=== PATIENT | female | born 1970 | race Caucasian/White ===

== ENCOUNTER 2018-06-17 10:01 | Inpatient (IN) | payer BC ==
[~2018-06-17] VITALS: Ht 160 cm; Wt 86.0 kg
[~2018-06-17 10:01] MED LIST: ADDERALL 10 MG10 MG PO; AMBIEN10 MG PO; ATORVASTATIN CA10 MG PO; BRINTELLIX PO; CREON DR 6,000 U1 EA PO; DICYCLOMINE HCL20 MG PO; HYDROCHLOROTHIA25 MG PO; LATUDA40 MG PO; LOSARTAN POTASS25 MG PO; METOCLOPRAMIDE10 MG PO; PANTOPRAZOLE SO40 MG PO; TRINTELLIX PO; VIBERZI PO; XANAX1 MG PO
--- OUTSIDE RECORDS SUMMARY | 2018-06-17 10:03 | XMS REPORT | Clinical Summary ---
Author Author [facility] Organization [facility] Address Unknown Phone Unavailable Care Team Providers Care Concession Attendant Name Role Phone Paola Gibbons MD PCP Allergies Not on File Medications Not on file Active Problems Not on file Social History Date Tobacco Use Types Packs/Day Years Used Never Assessed Sex Assigned at Date Recorded Not on file Industry Job Start Date Occupation Not on file Not on file Not on file Travel End Travel History Travel Start No recent travel history available. Last Filed Vital Signs Not on file Plan of Treatment Health Maintenance Due Date Last Done Comments CERVICAL CANCER SCREENING 1989 INFLUENZA VACCINE 02/07/2018 BREAST CANCER SCREENING 2018 COLON CANCER SCREENING 2018 SHINGRIX VACCINE (1 of 2) 2018 HEPATITIS B VACCINES Aged Out No longer eligible based on patient's age to complete this topic IPV VACCINES Aged Out No longer eligible based on patient's age to complete this topic MENINGOCOCCAL VACCINE Aged Out No longer eligible based on patient's age to complete this topic Results Not on fileafter 06/16/2017 Insurance Payer Benefit Subscriber ID Type Phone Address Plan / Group BCBS ANTHEM xxxxxxxxxxxx PPO BLUE CROSS BCBS ANTHEM xxxxxxxxxxxx PPO BLUE CROSS BCBS BCBS xxxxxxxxxxxx PPO CHOICE PPO/FEDERA L EMPL PPO ([place]) [place] [address] Advance Directives Patient has advance care planning documents on file. For more information, ranjeet santa contact: Guido Ruvalcaba [address] [place] [address]
--- OUTSIDE RECORDS SUMMARY | 2018-06-17 10:03 | XMS REPORT ---
Author Author [facility] Address Unknown Phone Unavailable Care Team Providers Care Rehabilitation Clerk Name Role Phone UNKNOWN, REFFERING PP Unavailable MANOJ MCMAHON Unavailable Unavailable Problems This patient has no known problems. Allergies, Adverse Reactions, Alerts This patient has no known allergies or adverse reactions. Medications This patient has no known medications. Results Test Description Test Time Test Comments Text Results Atomic Results Result Comments BHCG, Urine, Qualitative 2017-03-14 15:02:00 Preg Qual [Ur] (test code=HUHCG) Negative Negative
[2018-06-17] MEDS ORDERED: SODIUM CHLORIDE 0.9% 1000ML 1,000 ML IV STA (10:24)
[2018-06-17] MEDS ORDERED: FAMOTIDINE 20 MG/2 ML VIAL IV ONE (11:00)
[2018-06-17] MEDS ORDERED: MORPHINE SULFATE INJ 4 MG/ML INJ IV ONE (11:00)
[2018-06-17] MEDS ORDERED: ONDANSETRON HCL INJ 2 MG/ML VIAL IV ONE (11:00)
[2018-06-17] MEDS ORDERED: IOPAMIDOL 300MG/ML 100 ML INFUS..BTL IV ONE (11:15)
[2018-06-17] MEDS: POTASSIUM CHLORIDE 10MEQ/100ML 200 ML IV ONE ×2 (11:43→16:00)
[2018-06-17] MEDS: PROMETHAZINE 25MG/ NS 50ML (IV) IV PRN ×2 (11:47→13:56)
[2018-06-17] MEDS: LACTATED RINGER'S 1,000 ML IV SCH ×2 (11:55→13:56)
[2018-06-17] MEDS ORDERED: POTASSIUM CHLORIDE 20 MEQ TAB CR PO ONE (12:00)
[2018-06-17] MEDS ORDERED: ENALAPRILAT IV INJ 1.25 MG/ML VIAL IV PRN (12:00)
[2018-06-17] MEDS ORDERED: DIPHENHYDRAMINE HCL INJ 50 MG/ML VIAL IV PRN (12:00)
[2018-06-17] MEDS ORDERED: PIPER-TAZ 3.375 GM 50 ML IV ONE (12:00)
[2018-06-17] MEDS ORDERED: PROMETHAZINE 25MG/ NS 50ML (IV) IV PRN (12:00)
[2018-06-17] MEDS ORDERED: ONDANSETRON HCL 4 MG ORAL DISINTEGRATING TAB PO PRN (12:00)
--- OUTSIDE RECORDS SUMMARY | 2018-06-17 12:06 | XMS REPORT | Clinical Summary ---
Author Author [facility]ido [facility] Organization [facility] Address Unknown Phone Unavailable Care Team Providers Care Policy Checker Name Role Phone Paola Gibbons MD PCP [...] xxxxxxxxxxxx PPO CHOICE PPO/FEDERA L EMPL PPO ([place]) [place] [address] Advance Directives Patient has advance care planning documents on file. For more information, ranjeet santa contact: Guido Ruvalcaba [address] [place] [address]
[2018-06-17] MEDS ORDERED: PROMETHAZINE 25MG/ NS 50ML (IV) IV ONE (12:30)
--- NOTE | 2018-06-17 12:39 | Diagnostic Imaging Report ---
EXAMINATION: CT of the abdomen and pelvis with contrast. TECHNIQUE: Helical CT images of the abdomen and pelvis were performed from the lung bases to the lesser trochanters after the intravenous administration of 100 cc of Isovue 300 and the oral administration of none. Coronal and sagittal reformatted images were obtained. Dose modulation, iterative reconstruction, and/or weight based adjustment of the mA/kV was utilized to reduce the radiation dose to as low as reasonably achievable. COMPARISON: None. CLINICAL HISTORY:abdominal pain DISCUSSION: ABDOMEN/PELVIS: LOWER THORAX:Unremarkable. HEPATOBILIARY: No focal hepatic lesions. No intra-or extrahepatic biliary ductal dilation. The gallbladder is normal. SPLEEN: No splenomegaly. PANCREAS: Peripancreatic soft tissue stranding. No fluid collection. No parenchymal necrosis. ADRENALS: No adrenal nodules. KIDNEYS/URETERS: No hydronephrosis, stones, or solid mass lesions. PELVIC ORGANS/BLADDER: The bladder is normal. PERITONEUM/RETROPERITONEUM: No free air or fluid. LYMPH NODES: No intra-abdominal, retroperitoneal, pelvic or inguinal lymphadenopathy. VESSELS: The celiac trunk,superior and inferior mesenteric and bilateral renal arteries are patent The portal, superior mesenteric and splenic veins are patent. GI TRACT: No distention or wall thickening. BONES AND SOFT TISSUE: No bony destructive lesions. No soft tissue abnormalities. IMPRESSION: Acute pancreatitis without complication. Signed by: Dr. Ricky Soto M.D. on 06/17/2018 12:35 PM
[2018-06-17 13:47] VITALS: BP 141/90
[2018-06-17] MEDS: HYDROMORPHONE 2MG/ML 2 MG/ML ML IV PRN ×2 (13:57→18:04)
[2018-06-17 15:58] VITALS: BP 98/67
[2018-06-17] MEDS ORDERED: LOSARTAN POTASS50 MG PO (16:07)
[2018-06-17] MEDS ORDERED: LEXAPRO10 MG PO (16:07)
[2018-06-17] MEDS ORDERED: LATUDA80 MG PO (16:07)
[2018-06-17] MEDS ORDERED: ADDERALL 20 MG20 MG PO ×2 (16:12)
[2018-06-17] MEDS ORDERED: trazodone PO (16:16)
[2018-06-17 16:28] VITALS: BP 98/67
--- NOTE | 2018-06-17 16:49 | Diagnostic Imaging Report ---
EXAMINATION: Right upper quadrant ultrasound CLINICAL INDICATION: Right upper quadrant pain COMPARISON: None DISCUSSION: Transverse and longitudinal images of the right upper quadrant were obtained. The liver is prominent in size measuring 15.6centimeters in length in the right midclavicular line and shows normal echogenicity. No focal masses are seen in the liver. There is no intrahepatic biliary dilatation. The common bile duct is normal in caliber and measures 0.4 cm. The main portal vein is normal in caliber and measures 1.1 cm with normal hepatopetal flow. The gallbladder is normal in appearance without stones, wall thickening or pericholecystic fluid. The sonographic Ardon's sign is negative. Limited evaluation of the pancreas. The right kidney measures 11.2 centimeters in length. There is normal renal cortical echogenicity and no hydronephrosis, mass or shadowing calculi. The visualized portions of the great vessels are normal. No free fluid is seen. IMPRESSION: Normal gallbladder. No gallstones. Signed by: Dr. Ricky Soto M.D. on 06/17/2018 4:46 PM
[2018-06-17 20:00] VITALS: BP 101/63
[2018-06-17] MEDS ORDERED: POTASSIUM CHLORIDE 20MEQ/100ML 200 ML IV ONE (20:30)
[2018-06-17] MEDS ORDERED: POTASSIUM CHLORIDE 20 MEQ TAB CR PO STA (20:35)
[2018-06-17] MEDS: SOD CHL 0.45%/POT CHL 20MEQ 1,000 ML IV SCH (21:04)
[2018-06-17] MEDS: ONDANSETRON HCL INJ 2 MG/ML VIAL IV PRN (21:05)
[2018-06-17] MEDS: MORPHINE SULFATE 2 MG/ML SYR IV PRN (21:05)
[2018-06-17] MEDS: HYDROCODONE/APAP 5MG-325MG TAB PO PRN (23:56)
[2018-06-18] VITALS (7 sets, daily range): BP systolic 121–133; BP diastolic 74–90
[2018-06-18] MEDS: MORPHINE SULFATE 2 MG/ML SYR IV PRN ×2 (02:58→07:41)
[2018-06-18] MEDS: ONDANSETRON HCL INJ 2 MG/ML VIAL IV PRN (02:58)
[2018-06-18] MEDS: SOD CHL 0.45%/POT CHL 20MEQ 1,000 ML IV SCH ×3 (04:28→22:00)
[2018-06-18] MEDS: HYDROCODONE/APAP 5MG-325MG TAB PO PRN (04:29)
[2018-06-18 05:14] LABS: BASOPHILS % 0.2 % (0.0-1.0); EOSINOPHILS % 0.4 % (0.0-6.0); HEMOGLOBIN 11.8 g/dL (12.0-16.0); LYMPHOCYTES # (AUTO) 1.7 (1.0-3.2); LYMPHOCYTES % 17.1 % (18.0-39.1); MEAN CORPUSCULAR HEMOGLOBIN 35.8 pg (28-32); MEAN CORPUSCULAR HGB CONC 36.9 g/dL (31-35); MONOCYTES # (AUTO) 0.6 (0.2-0.8); MONOCYTES % 6.4 % (4.4-11.3); NEUTROPHILS # (AUTO) 7.3 (2.1-6.9); NEUTROPHILS % 75.5 % (38.7-80.0); PLATELET COUNT 117 x10e3/uL (140-360); RED CELL DISTRIBUTION WIDTH 16.1 % (11.7-14.4)
[2018-06-18 05:43] LABS: ALANINE AMINOTRANSFERASE 17 IU/L (0-55); ALBUMIN 2.8 g/dL (3.5-5.0); ALKALINE PHOSPHATASE 45 IU/L (40-150); AMYLASE 1499 U/L (25-125); ANION GAP 14.3 mmol/L (8-16); BLOOD UREA NITROGEN 6 mg/dL (7-26); BUN/CREATININE RATIO 9 (6-25); CALCIUM 7.6 mg/dL (8.4-10.2); CARBON DIOXIDE 25 mmol/L (22-29); CHLORIDE 97 mmol/L (98-107); CREATININE, SERUM 0.65 mg/dL (0.57-1.11); EST GLOMERULAR FILTRATION RATE > 60 ML/MIN (60-); GLUCOSE 77 mg/dL (74-118); LIPASE 215 U/L (8-78); POTASSIUM 3.3 mmol/L (3.5-5.1); SODIUM 133 mmol/L (136-145)
--- NOTE | 2018-06-18 09:32 | Consultation ---
DATE OF CONSULTATION: June 18, 2018 This is a 48 year old who apparently drinks 3-4 drinks a day, presented to the hospital because of abdominal pain, which is mainly in the left abdominal area for several days. Her workup revealed that she has some anemia with a hemoglobin of 11.8, as well as acute pancreatitis. The ultrasound shows no evidence of gallstones. She did have a CT scan which did confirm acute pancreatitis. Her other medical problems are really unremarkable, except she drinks daily, about 3-4 drinks a day. She also has a history of hypertension. MEDICATIONS: At home, supposedly on Ambien, Xanax, losartan, hydrochlorothiazide, 10% calcium, , metoclopramide, dicyclomine, pantoprazole. PAST MEDICAL HISTORY: As mentioned above. FAMILY HISTORY: Noncontributory. REVIEW OF SYSTEMS: Denies any chest pain at this point. Denies any shortness of breath. Denies any nausea or vomiting. Denies any dysuria or hematuria, or any kind of syncopal episode. PHYSICAL EXAMINATION GENERAL: The patient is awake, alert and appears to be stable. No acute distress at this point. VITAL SIGNS: Afebrile currently. Stable vital signs. HEENT: Atraumatic and normocephalic. Sclerae is anicteric. NECK: Supple. HEART: Sounds regular. ABDOMEN: Soft. There is tenderness in the epigastric area. There is no rebound or mass. EXTREMITIES: No clubbing. LAB VALUES: Today, potassium is 3.3, amylase is 1499, lipase of 215. WBC on admission of 9.6, hemoglobin 11.8. IMPRESSION 1. Acute pancreatitis related to alcohol abuse. 2. Hypertension. 3. Anemia. RECOMMENDATIONS: Continue current care at this point. N.p.o. Pain control. Follow labs clinically. I strongly suggest to stop alcohol intake. Job#: [id number] RI cc:MD HEATHER NGUYEN MD
[2018-06-18] MEDS ORDERED: MORPHINE SULFATE 2 MG/ML SYR IV STA (09:42)
[2018-06-18] MEDS: MORPHINE SULFATE INJ 4 MG/ML INJ IV PRN ×4 (10:17→22:16)
--- NOTE | 2018-06-18 11:21 | History and Physical ---
CHIEF COMPLAINT: Abdominal pain. HPI: This is a 48-year-old female with known history of chronic alcohol abuse, very noncompliant with her primary care visits, who comes in with complaints of epigastric abdominal pain ongoing for the last 3 days. Patient reports that initially she described having right upper quadrant abdominal pain that continued to get worse since Monday, then radiated to the epigastric area. She reports she drinks alcohol daily, especially hard liquor with whiskey. She reports drinking every day. Does not eat a whole lot. When the pain began, she noticed that the pain has been excruciating with decreased oral intake with associated nausea and vomiting. Patient was seen and evaluated at bedside on the medical floor. Currently complaining of pain. She has elevated lipase as well as amylase. Imaging is consistent with acute pancreatitis. She denies any history of hyperlipidemia or diabetes. REVIEW OF SYSTEMS: Pertinent positives: Abdominal pain, nausea, vomiting, decreased oral intake. Pertinent negatives: Denies any chest pain, palpitations, dysuria, hematuria, frequency, urgency, lightheadedness, dizziness, headache, shortness of breath, cough, congestion, fever or any other complaints. The rest of the 14-point review of systems have been reviewed with the patient and are negative. ALLERGIES: NO KNOWN DRUG ALLERGIES. HOME MEDICATIONS 1. Lipitor 10 mg daily. 2. Lexapro 20 mg daily. 3. Hydrochlorothiazide 12.5 mg daily. 4. Protonix 40 mg daily. 5. Ambien 12.5 mg at bedtime. 6. She also takes Adderall. 7. Losartan 50 mg daily. PAST MEDICAL HISTORY: Has depression, hyperlipidemia, acid reflux, hypertension, multiple psychiatric disorders, chronic alcohol abuse. SURGICAL HISTORY: None. FAMILY HISTORY: Hypertension, diabetes. SOCIAL HISTORY: No drugs. She drinks daily hard liquor. Does not smoke. She is . VITAL SIGNS: Temperature is 98.9, pulse 101, respiratory rate is 20, blood pressure 132/86, pulse ox 95% on room air. LAB FINDINGS: White count 9.6, hemoglobin 11.8, hematocrit 32, platelets of 117. Chemistries: Sodium 132, potassium 3.3, chloride 97, bicarb 25, anion gap 6, BUN 6, creatinine 0.65, calcium 11.6. LFTs: Total bilirubin 0.9, AST 35, ALT 17, alk phos 45, total protein 5.7, albumin 2.8. Amylase is 1499 and lipase 215. Alcohol level is negative. MICROBIOLOGY: None. IMAGING STUDIES: Gallbladder ultrasound: Normal gallbladder, no gallstones. CT abdomen and pelvis: Acute pancreatitis without complications. PHYSICAL EXAMINATION GENERAL: Not in acute distress, alert and oriented times 3, cooperative on exam. She does have severe pain during my evaluation. HEENT: Head is normocephalic and atraumatic. Eyes: Pupils are equal and reactive to light bilaterally. The extraocular movements are intact bilaterally. NECK: Supple with good range of motion. THROAT: No evidence of any erythema or exudates in the posterior pharynx, has poor dentition. PULMONARY: Clear to auscultation bilaterally. No wheezing, no rales, no rhonchi, no crackles appreciated. CARDIOVASCULAR: Positive S1 and S2. No murmurs, rubs, or gallops appreciated. ABDOMEN: Tender to palpation in the epigastric region. Bowel sounds were present. MUSCULOSKELETAL: Strength is 5/5 throughout. No evidence of any musculoskeletal deficits on examination. No weakness appreciated. NEUROLOGIC: Cranial nerves II through XII are grossly intact. No evidence of any neurologic deficit on exam. SKIN: Intact. Warm to touch. Good cap refill. PSYCHIATRIC: Normal affect and mood. EXTREMITIES: No edema. Good range of motion throughout. IMPRESSION 1. Acute alcoholic pancreatitis. 2. Hypertension. 3. Anemia. 4. Hypokalemia. 5. Abdominal pain secondary to acute pancreatitis. 6. Hypertension. 7. Depression. PLAN: At this time, GI has been consulted and recommended just alcohol cessation and monitor her very closely. Continue with n.p.o., IV fluids, pain control. Will repeat labs in the morning. Resume all her home medications. Continue same home medications. Put her on Lovenox for DVT prophylaxis. Encourage ambulation. Continue n.p.o. for now. Once her pain is much subsided, will start on a clear liquid diet tomorrow. Increase pain medication to 4 mg of morphine q.4 h. Otherwise, will continue with same plan of care and monitor closely. Follow up with GI recommendations. Job#: [id number]
[2018-06-18] MEDS ORDERED: MORPHINE SULFATE 2 MG/ML SYR IV PRN (12:30)
[2018-06-18] MEDS: LURASIDONE HCL 80 MG PO SCH (20:20)
[2018-06-18] MEDS: ATORVASTATIN 10 MG TAB PO SCH (20:21)
[2018-06-18] MEDS ORDERED: LURASIDONE HCL 80 MG PO SCH (21:00)
[2018-06-19 00:54] VITALS: BP 125/76
[2018-06-19] MEDS: MORPHINE SULFATE INJ 4 MG/ML INJ IV PRN ×5 (02:20→20:30)
[2018-06-19 05:02] LABS: BASOPHILS % 0.2 % (0.0-1.0); EOSINOPHILS # (AUTO) 0.1 (0.0-0.4); EOSINOPHILS % 0.9 % (0.0-6.0); HEMATOCRIT 28.9 % (34.2-44.1); HEMOGLOBIN 10.1 g/dL (12.0-16.0); LYMPHOCYTES # (AUTO) 1.5 (1.0-3.2); LYMPHOCYTES % 15.5 % (18.0-39.1); MEAN CORPUSCULAR HEMOGLOBIN 34.6 pg (28-32); MEAN CORPUSCULAR HGB CONC 34.9 g/dL (31-35); MONOCYTES # (AUTO) 0.6 (0.2-0.8); MONOCYTES % 5.9 % (4.4-11.3); NEUTROPHILS # (AUTO) 7.2 (2.1-6.9); PLATELET COUNT 104 x10e3/uL (140-360); RED BLOOD COUNT 2.92 x10e6/uL (3.6-5.1)
[2018-06-19 05:25] LABS: ALANINE AMINOTRANSFERASE 13 IU/L (0-55); ALBUMIN 2.3 g/dL (3.5-5.0); ALBUMIN/GLOBULIN RATIO 0.8 (0.8-2.0); ALKALINE PHOSPHATASE 52 IU/L (40-150); AMYLASE 1181 U/L (25-125); ANION GAP 15.3 mmol/L (8-16); BLOOD UREA NITROGEN 5 mg/dL (7-26); BUN/CREATININE RATIO 9 (6-25); CALCIUM 7.4 mg/dL (8.4-10.2); CARBON DIOXIDE 22 mmol/L (22-29); CHLORIDE 101 mmol/L (98-107); CREATININE, SERUM 0.58 mg/dL (0.57-1.11); EST GLOMERULAR FILTRATION RATE > 60 ML/MIN (60-); GLUCOSE 60 mg/dL (74-118); LIPASE 86 U/L (8-78); POTASSIUM 3.3 mmol/L (3.5-5.1); SODIUM 135 mmol/L (136-145)
[2018-06-19 06:40] VITALS: BP 127/77
[2018-06-19] MEDS: SOD CHL 0.45%/POT CHL 20MEQ 1,000 ML IV SCH ×3 (07:07→15:12)
[2018-06-19 08:00] VITALS: BP 131/86
[2018-06-19] MEDS: LOSARTAN POTASSIUM 25 MG TAB PO SCH (08:19)
[2018-06-19] MEDS: PANTOPRAZOLE SOD 40 MG TABEC PO SCH (08:19)
[2018-06-19] MEDS: ESCITALOPRAM OXALATE 10 MG TAB PO SCH (08:19)
[2018-06-19] MEDS ORDERED: NON-FORMULARY MEDICATION (Losartan Potassium 50 MG) PO SCH (09:00)
[2018-06-19 12:00] VITALS: BP 131/80
[2018-06-19] MEDS ORDERED: POTASSIUM CHLORIDE 20 MEQ TAB CR PO NR (15:38)
[2018-06-19 16:00] VITALS: BP 160/82
[2018-06-19] MEDS ORDERED: ZOLPIDEM TARTRATE 5 MG TAB PO PRN (16:00)
--- NOTE | 2018-06-19 16:45 | Progress Note ---
DATE: June 19, 2018 PROGRESS NOTE SUBJECTIVE: Patient is doing much better today with no other complaints. Her abdominal pain is much improved. We are going to start on clear-liquid diet. OBJECTIVE VITAL SIGNS: Temperature is 97.4, pulse 87, respiratory rate is 19, blood pressure 131/80, pulse ox 97% on room air. LAB FINDINGS: Show white count is 9.3, hemoglobin 10.1, hematocrit is 28.9, platelets of 104. CHEMISTRY: Sodium 135, potassium 3.3, chloride 101, bicarb 22, anion gap of 15, BUN is 5, creatinine is 0.58, glucose is 60, calcium is 7.4. Total bilirubin is 0.7. LFTs were normal. Albumin is 2.3. Lipase is 86. Her amylase is 1181. MICROBIOLOGY: None. IMAGING STUDIES: None. PHYSICAL EXAMINATION GENERAL: Not in acute distress. Alert, oriented x3, cooperative on examination. HEENT: Head: Normocephalic, atraumatic. Eyes: Pupils equally round and reactive to light bilaterally. Extraocular movements intact bilaterally. Neck was supple with good range of motion. Throat: No evidence of any erythema or exudates in the posterior pharynx. Has poor dentition. PULMONARY: Clear to auscultation bilaterally. No wheezing, no rales, no rhonchi, no crackles appreciated. CARDIOVASCULAR: Positive S1/S2. No murmurs, rubs or gallops appreciated. ABDOMEN: Soft, nondistended, nontender to palpation. Bowel sounds present. MUSCULOSKELETAL: Strength is 5/5 throughout. No evidence of any musculoskeletal deficit on examination. No weakness appreciated. NEUROLOGICAL: Cranial nerves 2-12 are grossly intact. No evidence of any neurological deficit on exam. SKIN: Intact. Warm to touch. Good capillary refill. PSYCHIATRIC: Normal affect and mood. EXTREMITIES: No edema. Good range of motion throughout. IMPRESSION 1. Acute alcoholic pancreatitis. 2. Hypertension. 3. Anemia. 4. Hypokalemia. 5. Abdominal pain secondary to acute pancreatitis. 6. Depression. PLAN: At this time her abdominal pain is improving. We are going to start her on a clear-liquid diet, advance as tolerated. Continue with IV fluids, pain control, and monitor very closely. I will continue with the morphine 4 mg q.4 h. We discussed with the patient that if she is improving she will likely be discharged tomorrow if she tolerates diet. Job#: [id number] EV
[2018-06-19 20:00] VITALS: BP 132/75
[2018-06-19] MEDS: LURASIDONE HCL 80 MG PO SCH (21:00)
[2018-06-19] MEDS: ATORVASTATIN 10 MG TAB PO SCH (21:31)
[2018-06-20] VITALS: BP 127/78
[2018-06-20] MEDS: MORPHINE SULFATE INJ 4 MG/ML INJ IV PRN ×2 (00:38→07:49)
[2018-06-20 07:45] VITALS: BP 165/93
[2018-06-20] MEDS: ESCITALOPRAM OXALATE 10 MG TAB PO SCH (07:48)
[2018-06-20] MEDS: PANTOPRAZOLE SOD 40 MG TABEC PO SCH (07:48)
[2018-06-20] MEDS: LOSARTAN POTASSIUM 25 MG TAB PO SCH (07:50)
[2018-06-20] MEDS: SOD CHL 0.45%/POT CHL 20MEQ 1,000 ML IV SCH (08:36)
[2018-06-20 08:37] VITALS: BP 165/93
[2018-06-20] MEDS ORDERED: POTASSIUM CHLORIDE 20 MEQ TAB CR PO STA (09:09)
[2018-06-20 11:58] VITALS: BP 124/68
[2018-06-20 16:00] VITALS: BP 106/64
--- NOTE | 2018-06-20 18:16 | Discharge Summary ---
FINAL DISCHARGE DIAGNOSES 1. Acute pancreatitis due to alcohol abuse. 1. Hypertension. 2. Anemia. 3. Hypokalemia. 4. Abdominal pain secondary to acute pancreatitis. 5. Depression. 6. Decreased oral intake. CONSULTANTS: GI. VITAL SIGNS: Temperature is 97.5, pulse 90, respiratory rate is 18, blood pressure 106/64, pulse ox 96% on room air. LAB FINDINGS: Show white count is 9.3, hemoglobin is 10.1, hematocrit is 28.9, platelets of 104. CHEMISTRY: Sodium 135, potassium 3.3, chloride 101, bicarb 22, anion gap of 16, BUN is 5, creatinine is 0.58, glucose is 60, calcium is 7.4. Albumin is 2.3. Lipase was 86. Amylase was elevated 1181. LFTs were normal. Alcohol level was undetectable. MICROBIOLOGY: None. IMAGING STUDIES: Gallbladder ultrasound shows a normal gallbladder with no gallstones. CT abdomen and pelvis: Acute pancreatitis without complications. HOSPITAL COURSE: A 48-year-old female, known alcoholic, comes into the ED with complaints of severe abdominal pain epigastrically that radiates all the way to her back. She reports that her last alcoholic drink was on Monday of last week. She reported having significant amount of hard liquor at home in which her liquor of choice is whiskey. While here her lipase level and amylase level were elevated. Patient was n.p.o. initially on IV fluids and pain control. GI was consulted. Patient was then initiated from clear-liquid diet to a solid diet prior to discharge in which she tolerated well. Her lipase level did improve throughout the hospital course. On discharge patient had no other complaints and ready for discharge home. On the day of discharge, vital signs stable, labs reviewed and stable. Patient seen and evaluated and examined thoroughly on the day of discharge with no other complaints. Patient verbalized understanding and agreed with plan of care, to follow up accordingly as an outpatient with the primary care physician in 1 week's time. Follow up with GI in 2 weeks' time. MEDICATIONS: See med reconciliation form. DISPOSITION: Home. CONDITION: Stable. DIET: Heart-healthy. In the event of any worsening symptoms, patient advised to come back to the ED for further evaluation. Discharge summary took greater than 35 minutes. LOUISE ROY MD Job#: [id number] EV
== END 2018-06-20 17:49 | disposition home or self-care (01) | DRG 440 ==
LOC: FSED 10:01 → ERHOLD 11:56 → MED/SURG2 13:42
PROVIDERS: ADMIT Internal Medicine; ATTEND Internal Medicine
DX: K85.20 Alcohol induced acute pancreatitis without necrosis or infection (principal); F10.20 Alcohol dependence, uncomplicated; I10 Essential (primary) hypertension; D64.9 Anemia, unspecified; K21.9 Gastro-esophageal reflux disease without esophagitis; E86.0 Dehydration; E87.6 Hypokalemia; F32.9 Major depressive disorder, single episode, unspecified
CPT/HCPCS: 36415; 74177; 76705; 80053; 80076; 80320; 81003; 82150; 83690; 85025; 96360; 96361; 99284; J1200; J2270; J2405; J2543; J2550; J3480; J7030; J7120; Q9967

== ENCOUNTER 2018-11-14 03:25 | Emergency (ER) | payer BC ==
[~2018-11-14] VITALS: Ht 160 cm; Wt 81.0 kg
[~2018-11-14 03:25] MED LIST changes: +ADDERALL 20 MG20 MG PO; +LATUDA80 MG PO; +LEXAPRO10 MG PO; +LOSARTAN POTASS50 MG PO; +trazodone PO
--- OUTSIDE RECORDS SUMMARY | 2018-11-14 03:30 | XMS REPORT | Clinical Summary ---
Author Author [facility] Organization [facility] Address Unknown Phone Unavailable Care Team Providers Care Animal Care Worker Name Role Phone Paola Gibbons MD PCP [...] Last Done Comments CERVICAL CANCER SCREENING 1989 BREAST CANCER SCREENING 2018 COLON CANCER SCREENING 2018 SHINGLES VACCINES (#1) 2018 INFLUENZA VACCINE 02/07/2019 Results Not on fileafter 11/13/2017 Insurance Payer Benefit Subscriber ID Type Phone Address Plan / Group BCBS ANTHEM xxxxxxxxxxxx PPO BLUE CROSS BCBS ANTHEM xxxxxxxxxxxx PPO BLUE CROSS BCBS BCBS xxxxxxxxxxxx PPO CHOICE PPO/FEDERA L EMPL PPO ([place]) [place] [address] Advance Directives Patient has advance care planning documents on file. For more information, ranjeet santa contact: Guido Ruvalcaba [address] [place] [address]
[2018-11-14] MEDS ORDERED: XANAX0.5 MG (03:53)
[2018-11-14] MEDS ORDERED: ACETAMINOPHEN 325 MG TAB PO ONE (04:00)
[2018-11-14] MEDS ORDERED: KETOROLAC TROMETHAMINE 60 MG/2 ML VIAL IM ONE (04:00)
--- NOTE | 2018-11-14 04:05 | NUR ---
Pt also c/o left rib pain under her left breast
--- NOTE | 2018-11-14 05:10 | Diagnostic Imaging Report ---
Exam: Thoracic spine 2 views History: Back pain Comparison: None. Findings: No fracture or malalignment. Multilevel degenerative disc disease throughout the thoracic spine with physiologic wedging of lower thoracic vertebrae. No abnormal soft tissue calcification or soft tissue defect. Impression: No acute osseous abnormality Multilevel thoracic spondylosis Signed by: Dr. Ricky Soto M.D. on 11/14/2018 5:06 AM
--- NOTE | 2018-11-14 05:13 | Diagnostic Imaging Report ---
Exam: Rib series History: Pain Comparison: None. Findings: No fracture or malalignment. No abnormal soft tissue calcification or soft tissue defect. Impression: No displaced rib fracture Signed by: Dr. Ricky Soto M.D. on 11/14/2018 5:09 AM
[2018-11-14] MEDS ORDERED: HYDROCODONE/APAP 5MG-325MG TAB PO ONE (05:15)
[2018-11-14 05:46] VITALS: BP 107/74
--- NOTE | 2018-11-15 09:19 | Diagnostic Imaging Report ---
Exam: Head CT without contrast History: Trauma, fall Comparison studies: None Technique: Axial images were obtained from the skull base to the vertex. Coronal and sagittal images reconstructed from the axial data. Dose modulation, iterative reconstruction, and/or weight based adjustment of the mA/kV was utilized to reduce the radiation dose to as low as reasonably achievable. Radiation dose: Total DLP: 969 mGy*cm. Estimated effective dose: DLP x 0.015 Intravenous contrast: None Findings: Scalp: Left parietal-occipital scalp hematoma and laceration with subcutaneous emphysema. No retained hyperdense foreign body. Bones: No fractures, blastic or lytic lesions. Brain sulci: Appropriate for age. Ventricles: Normal in size and configuration. No hydrocephalus. Extra-axial spaces: No masses, no fluid collection. Parenchyma: No abnormal densities. No masses, hemorrhage, acute or chronic vascular insults. Sellar/suprasellar region: No abnormalities. Craniocervical junction: Patent foramen magnum. No Chiari one malformation. IMPRESSION: 1. Left parietal-occipital scalp hematoma and laceration. No retained hyperdense foreign body or fracture. 2. No intracranial abnormalities. Signed by: Dr. Hoang Nunez M.D. on 11/14/2018 5:05 AM
== END 2018-11-14 05:37 | disposition home or self-care (01) ==
LOC: FSED 03:25
DX: S00.83XA Contusion of other part of head, initial encounter (principal); S20.222A Contusion of left back wall of thorax, initial encounter; W01.0XXA Fall on same level from slipping, tripping and stumbling without subsequent striking against object, initial encounter; Y92.000 Kitchen of unspecified non-institutional (private) residence as the place of occurrence of the external cause; I10 Essential (primary) hypertension; K92.9 Disease of digestive system, unspecified
CPT/HCPCS: 70450; 71101; 72070; 81025; 96372; 99284

== ENCOUNTER 2018-11-24 15:33 | Emergency (ER) | payer BC ==
[~2018-11-24] VITALS: Ht 160 cm; Wt 80.7 kg
[~2018-11-24 15:33] MED LIST changes: +XANAX0.5 MG
--- OUTSIDE RECORDS SUMMARY | 2018-11-24 15:36 | XMS REPORT | Clinical Summary ---
Author Author Guido [facility] Organization [facility] Address Unknown Phone Unavailable Care Team Providers Care Electronic Intelligence Officer Name Role Phone Paola Gibbons MD PCP [...] INFLUENZA VACCINE 02/07/2019 Results Not on fileafter 11/23/2017 Insurance Payer Benefit Subscriber ID Type Phone Address Plan / Group BCBS ANTHEM xxxxxxxxxxxx PPO BLUE CROSS BCBS ANTHEM xxxxxxxxxxxx PPO BLUE CROSS BCBS BCBS xxxxxxxxxxxx PPO CHOICE PPO/FEDERA L EMPL PPO ([place]) [place] [address] Advance Directives Patient has advance care planning documents on file. For more information, ranjeet santa contact: Guido Ruvalcaba [address] [place] [address]
[2018-11-24] MEDS ORDERED: IOPAMIDOL 370 MG/ML 200 ML INFUS..BTL INJ ONE (15:57)
[2018-11-24] MEDS ORDERED: SODIUM CHLORIDE 0.9% 50ML 50 ML ONE (15:58)
[2018-11-24] MEDS ORDERED: SODIUM CHLORIDE 0.9% 1000ML 1,000 ML IV SCH (16:00)
[2018-11-24] MEDS ORDERED: FENTANYL CITRATE/PF 100MCG/2 ML INJ IV ONE (16:00)
[2018-11-24] MEDS ORDERED: ONDANSETRON HCL INJ 2MG/ML 2ML 2 MG/ML VIAL ONE (16:04)
[2018-11-24] MEDS ORDERED: SODIUM CHLORIDE 0.9% 1000ML 1,000 ML ONE (16:05)
[2018-11-24] MEDS ORDERED: ONDANSETRON HCL INJ 2MG/ML 2ML 2 MG/ML VIAL IV STA (16:08)
[2018-11-24] MEDS ORDERED: ONDANSETRON HCL INJ 2MG/ML 2ML 2 MG/ML VIAL IV NR (16:30)
--- NOTE | 2018-11-24 17:16 | Diagnostic Imaging Report ---
CT BRAIN [facility] HISTORY: Headache, fall COMPARISON: Head CT 11/14/2018 TECHNIQUE: Noncontrast axial scans were obtained from skull base to the vertex. Coronal and sagittal reconstructions obtained from the axial data. One or more of the following dose reduction techniques were used: Automated exposure control, adjustment of the mA and/or kV according to patient size, and/or utilization of iterative reconstruction technique. DISCUSSION: Scalp/Skull: Small left parietal scalp hematoma has decreased in size. No calvarial fracture. Brain sulci: Appropriate for patient's age. Ventricles: Normal in size and configuration. No hydrocephalus. Extra-axial spaces: No masses or fluid collections. Parenchyma: Mild carotid siphon calcifications. No mass, hemorrhage, or large vascular territory acute infarct. Dural sinuses: No abnormal densities. Sellar/Suprasellar region: Intact. Skull base: Intact. Incidental findings: Mild nasal cavity mucosal thickening is partially visualized. IMPRESSION: No acute intracranial abnormalities. Signed by: Dr. Matthew Hernandez M.D. on 11/24/2018 5:13 PM
--- NOTE | 2018-11-24 17:25 | Diagnostic Imaging Report ---
EXAMINATION: CT scan of the chest with contrast. TECHNIQUE: Helical CT images of the chest were performed from the lung apices to the level of the adrenal glands after the intravenous administration of 100 cc of Omnipaque 300. Coronal and sagittal reformatted images were obtained.Dose modulation, iterative reconstruction, and/or weight based adjustment of the mA/kV was utilized to reduce the radiation dose to as low as reasonably achievable. COMPARISON: None. CLINICAL HISTORY:Shortness of breath, fall DISCUSSION: LINES/TUBES: None. LUNGS AND AIRWAYS: Minimal lung base atelectasis No pulmonary embolism. PLEURA: Small left pleural effusion. HEART AND MEDIASTINUM: The thyroid gland is normal. Heart size is enlarged. Hiatal hernia. LYMPH NODES: There is no mediastinal, hilar or axillary lymphadenopathy. ABDOMEN: Limited contrast-enhanced views of the upper abdomen show no abnormality within the visualized liver, spleen, pancreas, or kidneys. The adrenal glands are normal. BONES AND SOFT TISSUES: Left seventh through ninth nondisplaced rib fractures. IMPRESSION: No pulmonary embolism Left seventh through ninth nondisplaced rib fractures. Signed by: Dr. Ricky Soto M.D. on 11/24/2018 5:22 PM
[2018-11-24] MEDS ORDERED: NAPROSYN500 MG PO (17:27)
[2018-11-24] MEDS ORDERED: FIORINAL 50-321 EACH PO (17:27)
[2018-11-24] MEDS ORDERED: KETOROLAC TROMETHAMINE 30 MG/ML VIAL IV STA (17:30)
[2018-11-24] MEDS ORDERED: KETOROLAC TROMETHAMINE 30 MG/ML VIAL ONE (17:32)
[2018-11-24] MEDS ORDERED: ULTRAM50 MG PO (17:41)
== END 2018-11-24 17:57 | disposition home or self-care (01) ==
LOC: FSED 15:33
DX: S06.0X9A Concussion with loss of consciousness of unspecified duration, initial encounter (principal); S22.42XA Multiple fractures of ribs, left side, initial encounter for closed fracture; R55 Syncope and collapse; W18.30XA Fall on same level, unspecified, initial encounter; Y92.008 Other place in unspecified non-institutional (private) residence as the place of occurrence of the external cause; F17.210 Nicotine dependence, cigarettes, uncomplicated
CPT/HCPCS: 70450; 71275; 93005; 99284; J1885; J2405; J7030; Q9967

== ENCOUNTER → 2019-02-05 | Day surgery (SDC) | payer BC ==
[~2019-02-05] MED LIST changes: +ACETAMINOPHEN 1000 MG/100 ML IV ONE; +BUPIVACAINE HCL 0.5% INJ 30 ML VIAL INJ ONE; +CEFAZOLIN SOD 1 GM/NS 50ML 50 ML IV ONE; +DEXAMETHASONE SOD PHOS INJ 4 MG/ML VIAL ONE; +FENTANYL CITRATE/PF 100MCG/2 ML INJ ONE; +FIORINAL 50-321 EACH PO; +HYDROMORPHONE 1MG/1ML INJ ONE; +HYDROMORPHONE 2MG/ML 2 MG/ML ML ONE; +LIDOCAINE HCL 2% LOCAL INJ 5 ML SDV VIAL INJ ONE; +MIDAZOLAM HCL 2 MG/2 ML VIAL ONE; +NAPROSYN500 MG PO; +ONDANSETRON HCL INJ 2MG/ML 2ML 2 MG/ML VIAL ONE; +PROPOFOL IV EMULSION 10 MG/ML 20 ML VIAL ONE; +SEVOFLURANE INHAL SOLN 250 ML PEN BTL ONE; +ULTRAM50 MG PO
--- OUTSIDE RECORDS SUMMARY | 2019-02-05 05:15 | XMS REPORT | Clinical Summary ---
Author Author [facility] Organization [facility] Address Unknown Phone Unavailable Care Team Providers Care Center Director Lead Teacher Name Role Phone Paola Gibbons MD PCP [...] Health Maintenance Due Date Last Done Comments BREAST CANCER SCREENING 2018 COLONOSCOPY SCREENING 2018 SHINGLES VACCINES (#1) 2018 INFLUENZA VACCINE 02/07/2019 Results Not on fileafter 02/04/2018 Insurance Type Payer Benefit Subscriber ID Effective Phone Address Plan / Dates Group PPO BCBS ANTHEM xxxxxxxxxxxx 2015-P BLUE CROSS resent PPO BCBS ANTHEM xxxxxxxxxxxx 2016-P BLUE CROSS resent PPO BCBS BCBS xxxxxxxxxxxx 2016-P CHOICE resent PPO/FEDERA L EMPL PPO ([place]) [place] [address] Advance Directives Patient has advance care planning documents on file. For more information, ranjeet e contact: Guido Ruvalcaba [address] [place] [phone]
[2019-02-05 09:30] VITALS: BP 100/68
--- NOTE | 2019-02-05 11:30 | Operative Report ---
DATE OF PROCEDURE: 02/05/2019 SURGEON: Delvin Floyd DPM PREOPERATIVE DIAGNOSES: 1. Left hammer toe, 2nd, 3rd, 4th, and 5th. 2. Left metatarsal condylectomy, 2nd, 3rd, 4th, and 5th. POSTOPERATIVE DIAGNOSES: 1. Left hammer toe, 2nd, 3rd, 4th, and 5th. 2. Left metatarsal condylectomy, 2nd, 3rd, 4th, and 5th. PLANNED PROCEDURES: 1. Left 2nd digit arthroplasty. 2. Left 3rd digit arthroplasty. 3. Left 4th digit arthroplasty. 4. Left 5th digit arthroplasty. 5. Left 2nd metatarsal plantar condylectomy. 6. Left 3rd metatarsal plantar condylectomy. 7. Left 4th metatarsal plantar condylectomy. 8. Left 5th metatarsal plantar condylectomy. SURGEON: David Panda DPM ([place]) COAT CUTTER: Delvin Floyd DPM ANESTHESIA: General with a postoperative block consisting of 20 mL of 0.5% Marcaine plain, mixed 1 mL of dexamethasone phosphate. HEMOSTASIS: Pneumatic thigh tourniquet set at 350 mmHg for a total time of approximately 50 minutes. MATERIALS: Four 0.045 K-wires, 3-0 Vicryl, 4-0 Prolene. PATHOLOGY: None. ESTIMATED BLOOD LOSS: Less than 10 mL. PROCEDURE NOTE: The patient was seen in the preoperative waiting room. The correct procedure and site were identified. The patient was brought to the operating room, placed on the operating table in a supine position. General anesthesia was initiated. At this time, a well-padded pneumatic tourniquet was placed about the patient's left thigh. The left foot ankle leg was then scrubbed, prepped, and draped in the usual aseptic manner. The left foot, ankle, and leg was exsanguinated with an Esmarch bandage and the pneumatic thigh tourniquet was inflated to 350 mmHg for a total time of approximately 50 minutes. Attention was directed to the dorsal aspect of the left 2nd proximal interphalangeal joint, where a 2 cm linear incision made directly over the joint. Incision was carried through subcutaneous tissue them from deep or underlying structures. All vital neurovascular structures were identified, retracted medially and laterally, and all bleeders were cauterized or ligated as deemed necessary. Utilizing a #15 blade and tenotomy and capsulotomy was performed at the proximal interphalangeal joint. Next, a second incision was made at the 2nd metatarsophalangeal joint, approximately 2 cm in length and dissected down to the level of the tendon, where a tenotomy capsulotomy was performed at the level of the metatarsophalangeal joint. Utilizing McGlamry elevator, the joint was freed. Utilizing an osteotome and mallet, the plantar condyle was resected, passed off to the back table and shaved with a rasp. The wound was then copiously irrigated with sterile saline. Next, utilizing a 0.045 K-wire was drilled into the middle and distal phalanx back into the proximal phalanx and into the shaft of 1st metatarsal, this was confirmed via intraoperative fluoroscopy. The same exact procedure and technique were performed and the 2nd digit and 2nd metatarsal, 3rd digit and 3rd metatarsal, and 4th digit and 4th metatarsal with no additions, modification, or subtractions to the procedure and the same excellent result was achieved. Next, all K-wires were bent, cut, and capped. The wounds were again copiously irrigated with sterile saline. Capsule and deep tissue were reapproximated with 3-0 Vicryl and the skin was reapproximated utilizing a combination of simple interrupted sutures as well as a simple interlocking suture. The incision site was then dressed with Adaptic, 4x4s, Kerlix, Srikanth wrap, and a postop shoe. The patient tolerated the procedure and anesthesia well. The patient was transferred to the postop recovery room with vital signs stable and vascular status intact. The patient was monitored there for a short period of time before being sent home with the following written and oral instructions. 1. Keep the dressing clean, dry, intact. 2. The patient is to remain minimal heel touch weightbearing in a postop shoe to avoid excessive ambulation until being seen in the office. 3. The patient was given the office number to instructed to contact us if any problems should arise. LUCRECIA Segura/JOSEPHL /[id number]
== END | disposition home or self-care (01) ==
LOC: OR 05:00
PROVIDERS: ATTEND Podiatrist Foot & Ankle Surgery
DX: M20.42 Other hammer toe(s) (acquired), left foot (principal); M89.372 Hypertrophy of bone, left ankle and foot; I10 Essential (primary) hypertension; E78.00 Pure hypercholesterolemia, unspecified; F41.9 Anxiety disorder, unspecified; F31.9 Bipolar disorder, unspecified; F17.210 Nicotine dependence, cigarettes, uncomplicated; Z01.810 Encounter for preprocedural cardiovascular examination
CPT/HCPCS: 28270 ×4; 28285 ×4; 81025; 93005; C1713; J0131; J0690; J1100; J1170 ×2; J2001; J2250; J2405; J2704; J3010

== ENCOUNTER 2021-02-04 19:09 | Emergency (ER) | payer BC ==
[~2021-02-04] VITALS: Ht 160 cm; Wt 81.6 kg
[~2021-02-04 19:09] MED LIST changes: -ACETAMINOPHEN 1000 MG/100 ML IV ONE; -BUPIVACAINE HCL 0.5% INJ 30 ML VIAL INJ ONE; -CEFAZOLIN SOD 1 GM/NS 50ML 50 ML IV ONE; -DEXAMETHASONE SOD PHOS INJ 4 MG/ML VIAL ONE; -FENTANYL CITRATE/PF 100MCG/2 ML INJ ONE; -HYDROMORPHONE 1MG/1ML INJ ONE; -HYDROMORPHONE 2MG/ML 2 MG/ML ML ONE; -LIDOCAINE HCL 2% LOCAL INJ 5 ML SDV VIAL INJ ONE; -MIDAZOLAM HCL 2 MG/2 ML VIAL ONE; -ONDANSETRON HCL INJ 2MG/ML 2ML 2 MG/ML VIAL ONE; -PROPOFOL IV EMULSION 10 MG/ML 20 ML VIAL ONE; -SEVOFLURANE INHAL SOLN 250 ML PEN BTL ONE
[2021-02-04] MEDS ORDERED: ONDANSETRON ODT4 MG PO (20:49)
[2021-02-04] MEDS ORDERED: IBUPROFEN600 MG PO (20:49)
[2021-02-04] MEDS: KETOROLAC TROMETHAMINE 30 MG/ML VIAL IV STA (20:55)
[2021-02-04] MEDS: ONDANSETRON HCL INJ 2MG/ML 2ML 2 MG/ML VIAL IV STA (20:57)
[2021-02-04] MEDS ORDERED: KETOROLAC TROMETHAMINE 30 MG/ML VIAL ONE (21:02)
[2021-02-04] MEDS ORDERED: ONDANSETRON HCL INJ 2MG/ML 2ML 2 MG/ML VIAL ONE (21:02)
[2021-02-04 21:17] VITALS: BP 111/86
== END 2021-02-04 21:17 | disposition home or self-care (01) ==
LOC: FSED 19:14
DX: R10.32 Left lower quadrant pain (principal); K85.90 Acute pancreatitis without necrosis or infection, unspecified; I10 Essential (primary) hypertension; E78.00 Pure hypercholesterolemia, unspecified; F31.9 Bipolar disorder, unspecified; F42.9 Obsessive-compulsive disorder, unspecified
CPT/HCPCS: 80053; 81003; 85025; 96374; 96376; 99283; J1885; J2405